=== PATIENT | male | born 1965 | race Two or more races ===

== ENCOUNTER → 2016-06-23 | Outpatient (CLI) | payer OTHER ==
[2016-04-15 14:21] VITALS: BP 126/72
[~2016-06-23] MED LIST: AMOX1TAB61 PO; MIDO2.5T PO; TRAM50TA PO
[2016-06-23 18:07] LABS: FSH 22.4 mIU/mL (1.5-12.4); LUTEINIZING HORMONE 21.4 mIU/mL (1.7-8.6)
== END | disposition home or self-care (01) ==
LOC: LAB 07:58
PROVIDERS: ATTEND Urology
DX: E29.1 Testicular hypofunction (principal)
CPT/HCPCS: 36415; 83001; 83002

== ENCOUNTER 2016-08-28 17:26 | Emergency (ER) | payer OTHER ==
[2016-08-28 17:41] VITALS: BP 125/72
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
== END 2016-08-28 18:32 | disposition home or self-care (01) ==
LOC: ER 17:26
DX: S51.801A Unspecified open wound of right forearm, initial encounter (principal); J44.9 Chronic obstructive pulmonary disease, unspecified; G47.30 Sleep apnea, unspecified; F17.210 Nicotine dependence, cigarettes, uncomplicated; Z88.6 Allergy status to analgesic agent; W22.8XXA Striking against or struck by other objects, initial encounter; Y93.89 Activity, other specified; Y92.89 Other specified places as the place of occurrence of the external cause; Y99.8 Other external cause status
CPT/HCPCS: 99283

== ENCOUNTER 2018-07-13 10:13 | Emergency (ER) | payer MEDICARE, OTHER ==
[~2018-07-13] VITALS: Ht 193 cm; Wt 122.5 kg
[2018-07-13] MEDS ORDERED: HYDR25TA PO (10:43)
[2018-07-13] MEDS ORDERED: PRED-220 PO (10:43)
--- NOTE | 2018-07-13 10:43 | PHYS DOC ---
Past History Past Medical History: Asthma, COPD Past Surgical History: Appendectomy, Other Alcohol Use: None Drug Use: None Adult General Chief Complaint Chief Complaint: SKIN PROBLEM HPI HPI Patient is a 52 year old male who presents with complaint of rash. Patient states that his symptoms have been present over the past 2 days. Notes that he had been outdoors prior to onset of symptoms. States within a few days after being outside he started to notice rash to the bilateral upper extremities. He states that since that has spread across his body and is "everywhere." Denies tick bite. States that the rash feels like burning all over. Currently being treated for chronic wound of the right lower extremity. Has not noticed any new wounds or draining lesions since onset. Review of Systems Review of Systems Constitutional: Denies fever or chills [] Eyes: Denies change in visual acuity, redness, or eye pain [] HENT: Denies nasal congestion or sore throat [] Respiratory: Denies cough or shortness of breath [] Cardiovascular: Denies chest pain or edema[] GI: Denies abdominal pain, nausea, vomiting, bloody stools or diarrhea [] : Denies dysuria or hematuria [] Musculoskeletal: Denies back pain or joint pain [] Integument: Skin rash, chronic skin wound[] Neurologic: Denies headache, focal weakness or sensory changes [] All other systems were reviewed and found to be within normal limits, except as documented in this note. Allergies Allergies Allergies Coded Allergies Type Severity Reaction Last Updated Verified acetaminophen Allergy Severe Anxiety 03/03/16 Yes oxycodone Allergy Severe Anxiety 03/03/16 Yes Physical Exam Physical Exam Constitutional: Well developed, well nourished, no acute distress, non-toxic appearance. [] HENT: Normocephalic, atraumatic, bilateral external ears normal, oropharynx moist, no oral exudates, nose normal. [] Eyes: PERRLA, EOMI, conjunctiva normal, no discharge. [] Neck: Normal range of motion, no tenderness, supple, no stridor. [] Cardiovascular:Heart rate regular rhythm, no murmur [] Lungs & Thorax: Bilateral breath sounds clear to auscultation [] Abdomen: Bowel sounds normal, soft, no tenderness, no masses, no pulsatile masses. [] Skin: Diffuse urticarial lesions present along bilateral upper and lower extremities, trunk, and groin, no draining lesions, wound dressings to right lower leg appear clean, dry, and intact. [] Back: No tenderness, no CVA tenderness. [] Extremities: No tenderness, no cyanosis, no clubbing, ROM intact, no edema. [] Neurologic: Alert and oriented X 3, normal motor function, normal sensory function, no focal deficits noted. [] Current Patient Data Vital Signs Vital Signs Date Time Temp Pulse Resp B/P (MAP) Pulse Ox O2 Delivery O2 Flow Rate FiO2 07/13/18 10:22 98.0 76 18 98 Room Air Lab Results Not performed EKG EKG Not performed[] Radiology/Procedures Radiology/Procedures Not performed[] Course & Med Decision Making Course & Med Decision Making Pertinent Labs and Imaging studies reviewed. (See chart for details) Patient appears to have a nonspecific allergic reaction. Patient was treated with IM Solu-Medrol. Will continue on oral prednisone and Atarax for treatment of symptoms with recommended follow-up in 3 days with primary doctor for reevaluation. Advised return to emergency department for any worsening symptoms. Patient was understanding and in agreement with treatment plan. Dragon Disclaimer Dragon Disclaimer This electronic medical record was generated, in whole or in part, using a voice recognition dictation system. Departure Departure: Impression: Primary Impression: Allergic reaction Disposition: 01 HOME, SELF-CARE Condition: STABLE Referrals: SMITH ALVARENGA MD (PCP) Patient Instructions: Allergies, Generic Additional Instructions: Follow-up with your primary doctor in 3 days for reevaluation. Return to the emergency department for any worsening symptoms. Scripts Hydroxyzine Hcl (HYDROXYZINE HCL) 25 Mg Tablet 1 TAB PO TID PRN for ITCHING, #30 TAB Prov: CHAUNCEY DWYER MD 07/13/18 Prednisone (PREDNISONE) 10 Mg Tablet 10 MG PO UD for PREDNISONE TAPER, #39 TAB 0 Refills Take 3 tablets by mouth twice a day for 3 days, then take 2 tablets by mouth twice a day for 3 days, then take 1 tablet by mouth twice a day for 3 days, then take 1 tablet by mouth daily x 3 days, then stop. Prov: CHAUNCEY DWYER MD 07/13/18 Problem Qualifiers Primary Impression: Allergic reaction Encounter type: initial encounter Qualified Codes: T78.40XA - Allergy, unspecified, initial encounter CHAUNCEY DWYER MD July 13, 2018 10:43
[2018-07-13] MEDS ORDERED: methylPREDNISolone SOD SUCC PF 125 MG/2 ML VIAL. IM ONE (11:00)
[2018-07-13 11:13] VITALS: BP 117/76
== END 2018-07-13 11:17 | disposition home or self-care (01) ==
LOC: ER 10:13
DX: L50.0 Allergic urticaria (principal); J44.9 Chronic obstructive pulmonary disease, unspecified; Z88.6 Allergy status to analgesic agent; Z88.5 Allergy status to narcotic agent
CPT/HCPCS: 96372; 99283; J2930